=== PATIENT | female | born 1935 | race African-American/Black ===

== ENCOUNTER 2020-10-16 00:55 | Emergency (ER) | payer OTHER ==
[2020-10-16] MEDS ORDERED: cefTRIAXone\\ROCEPHIN 2 GM VIAL ONE (01:38)
[2020-10-16] MEDS ORDERED: Dexamethasone 10 MG/ML VIAL ONE (01:38)
[2020-10-16 01:47] LABS: #Basophils 0.1 thou/uL (0.0-0.2); #Lymphocytes 0.6 thou/uL (1.20-3.40); #Monocytes 0.6 thou/uL (0.11-0.59); #Neutrophils 6.4 thou/uL (1.40-6.50); %Basophils 1.6 % (0.0-1.0); %Eosinophils 0.1 % (0.0-10.0); %Lymphocytes 7.7 % (21.0-51.0); %Monocytes 7.6 % (0.0-10.0); %Neutrophils 83.1 % (42.0-75.0); Hemoglobin 14.7 g/dL (12.0-16.0); Mean Corpuscular Hemoglobin 29.5 pg (27.0-31.0); Mean Corpuscular Volume 94.9 fL (78.0-98.0); Mean Platelet Volume 7.7 fL (7.4-10.4); Platelet Count 199 thou/uL (130-400); RBC Distribution Width 12.6 % (11.5-14.5); White Blood Cell (WBC) Count 7.7 thou/uL (4.8-10.8)
[2020-10-16 02:17] LABS: ALT (SGPT) 31 U/L (8-55); AST (SGOT) 53 U/L (5-34); Albumin 3.6 g/dL (3.4-4.8); Alkaline Phosphatase 68 U/L (40-110); Anion Gap 21 mmol/L (10-20); BUN (Urea Nitrogen) 49 mg/dL (9.8-20.1); Bilirubin, Total 0.6 mg/dL (0.2-1.2); CK (CPK) 567 U/L (29-168); Calc. Creatinine Clearance 0 mL/min (70-130); Calcium 8.9 mg/dL (7.8-10.44); Carbon Dioxide 26 mmol/L (23-31); Chloride 110 mmol/L (98-107); Globulin 3.9 g/dL (2.4-3.5); Glucose 124 mg/dL (83-110); Potassium 4.6 mmol/L (3.5-5.1); Protein, Total 7.5 g/dL (6.0-8.3); Sodium 152 mmol/L (136-145)
[2020-10-16] MEDS ORDERED: Azithromycin 500 MG VIAL ONE (02:17)
[2020-10-16 02:27] LABS: Critical Call Chemistry Y
[2020-10-16 02:28] LABS: CKMB 0.7 ng/mL (0-6.6)
[2020-10-16] MEDS ORDERED: Enoxaparin Sodium 80 MG/0.8 ML SYRINGE ONE (02:34)
[2020-10-16 06:17] LABS: Troponin I 0.129 ng/mL (< 0.028)
[2020-10-16] MEDS ORDERED: Sodium Chloride 0.9% 1,000 ML BAG ONE (07:44)
[2020-10-16] MEDS ORDERED: Sodium Chloride 0.9% 100 ML BAG ONE (07:44)
--- NOTE | 2020-10-16 07:46 | RAD ---
XR Chest 1 View Portable History: Dyspnea Comparison: None. Findings: Perihilar peripheral airspace opacities. No pneumothorax. Small effusions. Cardiac silhouet te and mediastinal contours are within normal limits. Impression: Findings of multifocal pneumonia. Continued follow-up recommended.
[2020-10-16] MEDS ORDERED: Aspirin 300 MG Suppository ONE (10:10)
[2020-10-16] MEDS ORDERED: levETIRAcetam 500 MG/5 ML VIAL ONE (16:07)
== END 2020-10-16 19:23 | disposition short-term general hospital (02) ==
LOC: MADERS 00:55
DX: U07.1 COVID-19 (principal); J12.89 Other viral pneumonia; R77.8 Other specified abnormalities of plasma proteins; R79.89 Other specified abnormal findings of blood chemistry; E87.0 Hyperosmolality and hypernatremia; R09.02 Hypoxemia; I10 Essential (primary) hypertension; G40.909 Epilepsy, unspecified, not intractable, without status epilepticus; Z79.899 Other long term (current) drug therapy
CPT/HCPCS: 36415; 71045; 80053; 82550; 82553; 83605; 84484; 85025; 85379; 87040; 87149; 87804; 93005; 96365; 96367; 96372; 96375; J0456; J0696; J1100; J1650; J1953; J3490; J7050